=== PATIENT | male | born 1985 | race Caucasian/White ===

== ENCOUNTER 2016-09-29 11:38 | Outpatient (CLI) | payer OTHER ==
--- NOTE | 2016-09-29 20:26 | RAD ---
LEFT FOOT THREE VIEWS: 09/29/16 No fracture or periosteal reaction was seen. The navicular is somewhat deformed and protrudes medial ly a bit more than normal. 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 There are no particular arthritic changes or acute bony findings. 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 POS: HOME
--- NOTE | 2016-09-29 20:27 | RAD ---
LEFT ANKLE FOUR VIEWS 09/29/16 No fracture was seen. The articular surfaces of the ankle joint appear normal and the width is chin l. No deformities of the bone around the ankle were appreciated. IMPRESSION: No acute findings. POS: HOME
== END 2016-09-29 11:39 | disposition home or self-care (01) ==
LOC: BURRAD 11:38
PROVIDERS: ATTEND Family Medicine
DX: M79.672 Pain in left foot (principal)